=== PATIENT | female | born 1965 | race Caucasian/White ===

== ENCOUNTER 2024-07-30 08:15 | Outpatient (CLI) | payer BC | END 2024-07-30 08:16 | disposition home or self-care (01) | LOC: CSHSLEEP 08:15 | PROVIDERS: ATTEND Family Medicine | DX: G47.33 Obstructive sleep apnea (adult) (pediatric) (principal); R53.83 Other fatigue; G47.10 Hypersomnia, unspecified | CPT/HCPCS: 95800 ==